=== PATIENT | female | born 1950 | race Hispanic/Latino ===

== ENCOUNTER → 2023-12-20 | Outpatient (CLI) | payer MEDICARE, OTHER ==
[~2023-12-20] VITALS: Ht 157.5 cm; Wt 57.6 kg
[~2023-12-20] MED LIST: AMLO-257 PO; CALC500T13 PO; CALCIUM PO; FURO40TA5 PO; MVI PO; OMEG100014 PO; OXYB5TAB20 PO; PRED5TAB PO; SODI650T PO
[2023-12-20 09:53] VITALS: BP 124/62; PULSE 108; RESP 18
[2023-12-20 10:03] LABS: BASOPHILS # (AUTO) 0.03 K/uL (0.00-0.20); BASOPHILS % (AUTO) 0.2 % (0.0-5.0); EOSINOPHILS # (AUTO) 0.01 K/uL (0.00-0.70); EOSINOPHILS % (AUTO) 0.1 % (0.0-8.0); HEMATOCRIT 27.8 % (36-48); IMMATURE GRANULOCYTE ABSOLUTE 0.08 K/uL (0-1); LYMPHOCYTES # (AUTO) 0.4 K/uL (1.0-4.8); LYMPHOCYTES % (AUTO) 2.5 % (21.0-51.0); MEAN CORPUSCULAR HEMOGLOBIN 30.6 pg (27.0-33.0); MEAN CORPUSCULAR HGB CONC 31.3 g/dL (32.0-36.0); MEAN CORPUSCULAR VOLUME 97.9 fL (79-99); MONOCYTES # (AUTO) 1.2 K/uL (0.1-1.0); MONOCYTES % (AUTO) 7.8 % (3.0-13.0); NEUTROPHILS # (AUTO) 13.6 K/uL (1.8-7.7); NEUTROPHILS % (AUTO) 88.9 % (40.0-77.0); PLATELET COUNT (AUTO) 343 K/uL (130-400); RED BLOOD CELL COUNT(AUTO) 2.84 MIL/uL (4.00-5.50); RED CELL DISTRIBUTION WIDTH 17.2 % (11.0-15.5); WHITE BLOOD COUNT (AUTO) 15.3 K/uL (4.8-10.8)
[2023-12-20 10:23] LABS: BILIRUBIN,TOTAL 0.5 mg/dL (0.2-1.0); CREATININE 2.7 mg/dL (0.5-1.0); POTASSIUM 3.3 mmol/L (3.5-5.1); TOTAL PROTEIN, SERUM 7.8 g/dL (6.0-8.3)
== END | disposition home or self-care (01) ==
LOC: DAH 10:00 → EDSTATUS 12-24 07:30
PROVIDERS: ATTEND Surgery
DX: C20 Malignant neoplasm of rectum (principal); R19.7 Diarrhea, unspecified; L29.0 Pruritus ani; Z53.8 Procedure and treatment not carried out for other reasons; Z79.01 Long term (current) use of anticoagulants; Z98.890 Other specified postprocedural states; Z79.899 Other long term (current) drug therapy; Z80.8 Family history of malignant neoplasm of other organs or systems; Z85.038 Personal history of other malignant neoplasm of large intestine
CPT/HCPCS: 86900; 80053; 85025; 86850; 86901; 36415; 93005; A6260

== ENCOUNTER 2024-01-28 08:40 | Day surgery (SDC) | payer MEDICARE, OTHER ==
[2024-01-23 12:25] LABS: BASOPHILS # (AUTO) 0.05 K/uL (0.00-0.20); BASOPHILS % (AUTO) 0.6 % (0.0-5.0); EOSINOPHILS # (AUTO) 0.13 K/uL (0.00-0.70); EOSINOPHILS % (AUTO) 1.7 % (0.0-8.0); HEMATOCRIT 26.5 % (36-48); IMMATURE GRANULOCYTE ABSOLUTE 0.03 K/uL (0-1); LYMPHOCYTES # (AUTO) 1.3 K/uL (1.0-4.8); LYMPHOCYTES % (AUTO) 16.3 % (21.0-51.0); MEAN CORPUSCULAR HEMOGLOBIN 31.5 pg (27.0-33.0); MEAN CORPUSCULAR HGB CONC 29.4 g/dL (32.0-36.0); MEAN CORPUSCULAR VOLUME 106.9 fL (79-99); MONOCYTES # (AUTO) 0.5 K/uL (0.1-1.0); MONOCYTES % (AUTO) 6.6 % (3.0-13.0); NEUTROPHILS # (AUTO) 5.7 K/uL (1.8-7.7); NEUTROPHILS % (AUTO) 74.4 % (40.0-77.0); PLATELET COUNT (AUTO) 356 K/uL (130-400); RED BLOOD CELL COUNT(AUTO) 2.48 MIL/uL (4.00-5.50); RED CELL DISTRIBUTION WIDTH 15.9 % (11.0-15.5); WHITE BLOOD COUNT (AUTO) 7.7 K/uL (4.8-10.8)
[2024-01-23 12:36] VITALS: BP 90/45; PULSE 82; RESP 19
[2024-01-23 12:47] LABS: ALBUMIN 2.7 g/dL (3.5-5.0); BILIRUBIN,TOTAL 0.3 mg/dL (0.2-1.0); CREATININE 2.1 mg/dL (0.5-1.0); POTASSIUM 4.2 mmol/L (3.5-5.1); TOTAL PROTEIN, SERUM 7.4 g/dL (6.0-8.3)
[2024-01-23 13:06] LABS: INR <= 0.93 (0.85-1.15); PROTHROMBIN TIME 10.9 SEC (9.6-11.6)
[2024-01-23 13:08] LABS: PARTIAL THROMBOPLASTIN TIME 29.9 SEC (26.3-35.5)
[~2024-01-28] VITALS: Ht 157.5 cm; Wt 53.5 kg
[2024-01-28] VITALS (18 sets, daily range): BP systolic 116–149; BP diastolic 56–79; PULSE 84–92; RESP 13–25
[~2024-01-28 08:40] MED LIST changes: +AMIL5TAB8 PO; -AMLO-257 PO; -CALC500T13 PO; -CALCIUM PO; +FIBER PO; -OMEG100014 PO; -PRED5TAB PO
[2024-01-28] MEDS ORDERED: BUPIVACAINE/PF 0.25% 30ML VIAL IJ ONE (08:52)
[2024-01-28] MEDS ORDERED: MEROPENEM 1 GM VIAL ONE (09:04)
[2024-01-28] MEDS: INVANZ 1GM+NS 50ML IVPB 50 ML IV ONE (09:41)
[2024-01-28] MEDS: LACTATED RINGERS 1000ML 1,000 ML IV ONE (09:41)
[2024-01-28] MEDS ORDERED: EPINEPHRINE PF 1MG (1:1,000) 1 MG/ML AMP ONE (09:59)
[2024-01-28] MEDS ORDERED: NOREPINEPHRINE BITARTRATE 1 MG/1 ML ML IV ONE (09:59)
[2024-01-28] MEDS ORDERED: KETAMINE 50MG/ML SYRINGE 50 MG/ML DISP.SYRIN ONE (10:16)
[2024-01-28] MEDS ORDERED: GLYCOPYRROLATE 0.2 MG/ML 5 ML VIAL ONE (10:17)
[2024-01-28] MEDS ORDERED: LIDOCAINE PF 100MG/5ML (2%) SYRINGE 5ML ONE (10:17)
[2024-01-28] MEDS ORDERED: ROCURONIUM BROMIDE 10MG/1ML 5ML VL ONE (10:18)
[2024-01-28] MEDS ORDERED: PROPOFOL 10 MG/ML 20ML VIAL IV ONE (10:18)
[2024-01-28] MEDS ORDERED: MIDAZOLAM HCL 1 MG/ML 2ML VIAL ONE (10:20)
[2024-01-28] MEDS ORDERED: FENTANYL CITRATE PF 50 MCG/1 ML 2ML VIAL ONE ×2 (10:21→13:31)
[2024-01-28] MEDS ORDERED: SUGAMMADEX SODIUM 200 MG/2 ML VIAL IV ONE (11:46)
[2024-01-28] MEDS ORDERED: EPHEDRINE SULFATE 50 MG/ML AMPULE ONE (11:54)
[2024-01-28] MEDS ORDERED: ONDANSETRON 4MG INJ ONE (11:56)
[2024-01-28] MEDS: LIDOCAINE 1%-EPI 1:100,000 20 ML VIAL ONE (12:00)
[2024-01-28] MEDS: BUPIVACAINE/PF 0.5% 30ML VIAL ONE (12:00)
[2024-01-28] MEDS ORDERED: MORPHINE 2 MG SYG ONE (13:07)
[2024-01-28] MEDS: MORPHINE 2 MG SYG ONE (13:27)
[2024-01-28] MEDS: ACETAMINOPHEN 500 MG TABLET PO ONE (15:04)
== END 2024-01-28 15:10 | disposition home or self-care (01) ==
LOC: DAH 08:40
PROVIDERS: ATTEND Surgery
DX: C20 Malignant neoplasm of rectum (principal); C78.7 Secondary malignant neoplasm of liver and intrahepatic bile duct; R16.0 Hepatomegaly, not elsewhere classified; L29.0 Pruritus ani; R19.7 Diarrhea, unspecified; E78.5 Hyperlipidemia, unspecified; K21.9 Gastro-esophageal reflux disease without esophagitis; Z79.01 Long term (current) use of anticoagulants; Z79.899 Other long term (current) drug therapy
CPT/HCPCS: 80053; 85025; 85610; 85730; 86850 ×2; 86900 ×2; 86901 ×2; 36415 ×2; 93005; 47379; 49321; 88305; 88307; 88342; 88341; A6260; J7120; J3010 ×2; J3490 ×6; J2270 ×2; J2001; J0171; J2250; J2704; J2405; J0665; J2185; A4649; A4215 ×2; A4930 ×2; A4223; A4222; A4221; A4663; J7030; A4600; J1335; G0168